=== PATIENT | female | born 2000 | race Caucasian/White ===

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

== ENCOUNTER 2018-04-24 08:09 | Day surgery (SDC) | payer BC ==
--- NOTE | 2018-04-20 12:08 | HP ---
AMENDED REPORT NOW INCLUDES DESIGNATED COSIGNER PREOPERATIVE HISTORY AND PHYSICAL: DATE OF ADMISSION/SURGERY: 04/24/18. DATE OF OFFICE VISIT/ENCOUNTER: 04/02/18 ATTENDING SURGEON: Kamryn Machado MD.* (DICTATED BY ROBI TAPIA) PROCEDURE: Right wrist ganglion cyst excision. CHIEF COMPLAINT: Cyst, right wrist. HISTORY OF PRESENT ILLNESS: This is a 17-year-old female, [employer] student, who complains of a painful mass on the dorsal aspect of her right wrist. She initially noticed it a couple of years ago and saw Dr. Cloud and at that time had the cyst aspirated. Unfortunately, the cyst recurred. She thinks maybe it recurred after she injured her wrist. The cyst is now more painful. She denies any associated numbness or tingling. She would like to have the cyst surgically removed. PAST MEDICAL HISTORY: Unremarkable. PAST SURGICAL HISTORY: Surgery after a nasal fracture. CURRENT MEDICATIONS: None. ALLERGIES: No known drug allergies. FAMILY MEDICAL HISTORY: Hypertension and rheumatoid arthritis. 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 She denies tobacco use, recreational drug use, and does not drink alcohol. REVIEW OF SYSTEMS: Negative for general, cephalic, cardiovascular, respiratory , GI, , other musculoskeletal, integumentary, endocrine, neurologic, and hematologic symptoms. Infectious Disease: Negative for MRSA, hepatitis C, HIV. PHYSICAL EXAMINATION GENERAL: Well-developed, well-nourished 17-year-old female, in no acute distress. VITAL SIGNS: Height 5 feet 6 inches, weight 169 pounds. Pulse rate 96, blood pressure 122/70. HEENT: Normocephalic, atraumatic. Pupils are equal, round, and reactive to light and accommodation. Extraocular movements are intact. Throat is clear. NECK: Supple. No palpable lymph nodes. PULMONARY: Lungs are clear to auscultation bilaterally. No wheezes, rales, or rhonchi. CARDIOVASCULAR: Regular rate and rhythm. S1, S2. No murmurs, rubs, or gallops. No edema. ABDOMEN: Positive bowel sounds. Soft, nontender. NEUROLOGICAL: Alert and oriented x3. Cranial nerves II through XII are intact. Sensation is intact to light touch. MUSCULOSKELETAL: On exam of the right wrist, there is slight ecchymosis on the dorsal aspect of her right hand. There is, with flexion, evidence of a cystic mass at the right radiocarpal joint. She can fully flex and extend her fingers and her wrist but has pain with full extension of the wrist. There is significant pain with palpation of the mass. Neurovascular function is intact. IMAGING STUDIES: X-rays AP, lateral, and oblique of the right wrist show no acute osseous injury. IMPRESSION: Right dorsal wrist ganglion. PLAN: The patient is scheduled to undergo a right wrist ganglion cyst excision with Dr. Machado on 04/24/18. She will return to the office 10 days postop for followup and suture removal. A prescription for Ultracet was e-scribed to the patient's pharmacy for postoperative pain management. ROBI TAPIA [id number]/[place] #: [id number] [place]
[~2018-04-24 08:09] MED LIST: Buffered Lidocaine 0.9% SYRIN* 5 ML/SYR SYRINGE INTRADERM ONE; Famotidine IV* 10 MG/ML 2 ML (20 mg) IV ONE; Famotidine IV* 10 MG/ML 2 ML (20 mg) ONE; Lactated Ringers 1000 ML Bag* 1,000 ML IV SCH; Lidocaine 1% INJ* 10 MG/ML 30 ML SDV ONE
[2018-04-24] MEDS ORDERED: fentaNYL* 50 MCG/ML 2 ML VIAL (100 MCG VIAL) ONE (08:42)
[2018-04-24] MEDS ORDERED: Midazolam* 1 MG/ML 5 ML VIAL (5 MG) ONE (08:42)
[2018-04-24] MEDS ORDERED: DiMENhydriNATE IV* 50 MG/ML VIAL IV PUSH PRN (09:24)
[2018-04-24] MEDS ORDERED: Naloxone* 0.4 MG/ML 1 ML VIAL IV PRN (09:24)
[2018-04-24] MEDS ORDERED: Acetaminophen TAB* 325 MG PO PRN (09:24)
[2018-04-24] MEDS ORDERED: Propofol* 10 MG/ML 20 ML BTL ONE (09:44)
[2018-04-24] MEDS ORDERED: Lidocaine 2% PF * 5 ML VIAL ONE (09:44)
[2018-04-24] MEDS ORDERED: Ondansetron INJ* 2 MG/ML VIAL ONE (09:44)
[2018-04-24] MEDS ORDERED: Ketorolac INJ* 30 MG/ML 1 ML VIAL ONE (09:44)
[2018-04-24 10:32] VITALS: BP 106/73
--- NOTE | 2018-04-24 12:12 | OP ---
DATE OF OPERATION: 04/24/[address] [facility] DATE OF : 89 SURGEON: Kamryn Machado MD ELECTRONICS MANUFACTURER: ROBI Brennan ANESTHESIA: Local MAC. PRE-OP DIAGNOSIS: Right dorsal wrist ganglion. POST-OP DIAGNOSIS: Right dorsal wrist ganglion and right fourth compartment tenosynovitis. OPERATIVE PROCEDURE: Removal of right dorsal wrist ganglion and right wrist tenosynovectomy. ESTIMATED BLOOD LOSS: Zero. TOURNIQUET TIME: About 15 minutes. INDICATIONS FOR PROCEDURE: Lilly is a 17-year-old female with painful mass in the dorsal aspect of her right wrist. She presents for removal. DESCRIPTION OF PROCEDURE: The patient was brought to the operating room and was given a sedation anesthetic and a local infiltration of 10 cc of 1% plain lidocaine on the dorsal aspect of her right wrist. The skin of her right upper extremity was prepped and draped in the usual sterile fashion. The hand and forearm were exsanguinated and the tourniquet elevated to 250 mmHg. A transverse incision was made centered over the mass. We dissected bluntly through the subcutaneous tissues. There was abundant tenosynovitis in the fourth extensor compartment and this was debrided. There was a very small broad based ganglion cyst emanating from the wrist joint capsule and this was removed, was overlying the scapholunate ligament. The edges of the capsule and the dorsal aspect of the scapholunate ligament were cauterized with Bovie. The wound was irrigated and the skin edges reapproximated with 4-0 nylon suture. The wound was dressed with Xeroform, 4x4, Webril, and an Darwin wrap. The patient tolerated the procedure well and was brought to the recovery room in good condition. [id number]/[facility] #: [id number] [facility]
== END 2018-04-24 10:58 | disposition home or self-care (01) ==
LOC: OREAST 08:09
PROVIDERS: ATTEND Orthopaedic Surgery
DX: M67.431 Ganglion, right wrist (principal); M65.831 Other synovitis and tenosynovitis, right forearm
CPT/HCPCS: 81025; 88304; J1885; J2250; J2405; J2704; J3010